=== PATIENT | female | born 1995 | race Caucasian/White ===

== ENCOUNTER 2018-01-20 23:25 | Emergency (ER) | payer SELFPAY ==
--- NOTE | 2018-01-21 00:01 | ED ---
Substance Abuse/Use - HPI Summary HPI Summary: This patient is a 22 year old female BIBA to [facility] with a chief complaint of EtOH consumption. Patient was found on [facility], unresponsive. Patient states that she was at a [facility] in [facility] and was drinking vodka. Patient states she had around 8 drinks. At time of exam, patient is alert and answers questions appropriately. She states she vomited while being brought to ED and state she is still nauseous. - History Of Current Complaint Chief Complaint: EDOverdose Stated Complaint: ETOH Time Seen by Provider: 01/20/18 23:49 Hx Obtained From: Patient Onset/Duration of Drug/ETOH Abuse: Hours Ingestion History: Type/Name Of Drug - EtOH Overdose Characteristics: Oral Timing Of Abuse: Binge Use Severity Currently: Mild Aggravating Factor(s): Nothing Alleviating Factor(s): Nothing Associated Signs And Symptoms: Nausea, Vomiting - Allergies/Home Medications Home Medications: Home Medications NK [No Home Medications Reported] 01/20/18 [History Confirmed 01/20/18] PMH/Surg Hx/FS Hx/Imm Hx Previously Healthy: Yes Opthamlomology History: Denies: Hx Legally Blind EENT History: Denies: Hx Deafness Infectious Disease History: No Infectious Disease History: Denies: Traveled Outside the [place] in Last 30 Days - Family History Known Family History: Negative: Hypertension - Social History Occupation: Student Lives: Dormitory/Roommates Alcohol Use: Occasionally Hx Substance Use: No Substance Use Type: Reports: None Hx Tobacco Use: No Smoking Status (MU): Never Smoked Tobacco Review of Systems Negative: Fever Positive: Vomiting, Nausea All Other Systems Reviewed And Are Negative: Yes Physical Exam - Summary Physical Exam Summary: Appearance: Well-appearing, Well-nourished, lying in bed comfortable Skin: Warm, dry, no obvious rash Eyes: sclera anicteric, no conjunctival pallor ENT: mucous membranes moist Neck: deferred Respiratory: No signs of respiratory distress Cardiovascular: Appears well perfused, pulses are nml Abdomen: deferred Musculoskeletal: Moving all 4 extremities without obvious discomfort Neurological: Awake and alert, mentation is normal, speech is fluent and appropriate Psychiatric: affect is normal, does not appear anxious or depressed Triage Information Reviewed: Yes Vital Signs On Initial Exam: Initial Vitals Pulse BP Pulse Ox 86 110/66 100 01/20/18 23:41 01/20/18 23:41 01/20/18 23:41 Vital Signs Reviewed: Yes Diagnostics - Vital Signs Vital Signs Temp Pulse Resp BP Pulse Ox 01/20/18 23:44 80 100 01/20/18 23:43 98.6 F 70 18 110/66 100 01/20/18 23:41 86 110/66 100 - Laboratory Lab Statement: Any lab studies that have been ordered have been reviewed, and results considered in the medical decision making process. Course/Dx - Course Assessment/Plan: This patient is a 22 year old female BIBA to [facility] with a chief complaint of EtOH consumption. At time of exam, patient is alert and answers questions appropriately. She states she vomited while being brought to ED and state she is still nauseous. As of 0, patient is awake, alert, and able to ambulate with no complications. Patients friend is also here with her. Patient will be discharged with dx of EtOH intoxication. The patient is agreeable with this plan. - Diagnoses Provider Diagnoses: Alcohol intoxication Discharge - Sign-Out/Discharge Documenting (check all that apply): Patient Departure - Discharge Plan Condition: Good Disposition: HOME Patient Education Materials: Alcohol Intoxication (ED) Referrals: [facility] [Outside] - Billing Disposition and Condition Condition: GOOD Disposition: Home - Attestation Statements Document Initiated by Florindaibany: Yes Documenting Scribe: Nevin Lobo Provider For Whom [place] is Documenting (Include Credential): Shamir Duenas MD Scribe Attestation: Nevin Trent scribed for Shamir Duenas MD on 01/21/18 at 0325. Scribe Documentation Reviewed: Yes Provider Attestation: The documentation as recorded by the Nevin goss accurately reflects the service I personally performed and the decisions made by me, Shamir Duenas MD
[2018-01-21 02:18] VITALS: BP 117/71
== END 2018-01-21 02:18 | disposition home or self-care (01) ==
LOC: ED 23:25
DX: F10.129 Alcohol abuse with intoxication, unspecified (principal); R11.2 Nausea with vomiting, unspecified
CPT/HCPCS: 99283